=== PATIENT | female | born 1960 | race Caucasian/White ===

== ENCOUNTER 2024-09-10 15:19 | Emergency (ER) | payer MEDICARE, SELFPAY ==
--- NOTE | 2024-09-10 15:25 | XR_ITS ---
WS: [id number] Portable AP upright chest, 09/10/2024 Clinical Data: cough Comparison: None. Findings: No nodules, masses or effusions are seen. The heart is normal. The pulmonary vascularity is not increased. No pneumonia or pneumothorax is seen. The aortic arch and descending thoracic aorta show tortuosity. There is minimal pleural reaction at both costophrenic angles. XR/XR chest 1V portable [id number] Impression: Atherosclerosis.
[2024-09-10 15:48] VITALS: BP 155/79; PULSE 83; RESP 17; TEMP 38.1; O2SAT 94; BMI 32.4
[2024-09-10 17:25] LABS: Covid PCR NEGATIVE (Negative); Influenza A POSITIVE (Negative); Influenza B NEGATIVE (Negative); Respiratory Syncytial Virus Ce NEGATIVE (Negative)
[2024-09-10 18:30] VITALS: PULSE 79; RESP 16; O2SAT 94
--- NOTE | 2024-09-10 18:39 | W.ED.FEVER ---
HPI - Fever General: Chief Complaint: Fever Stated Complaint: congestion/cough Time Seen by Provider: 09/10/24 18:26 Source: patient Mode of arrival: ambulatory Limitations: no limitations History of Present Illness: 64-year-old female who states that over the last 3 days she has been having fever she is also been having some nausea vomiting and headaches. She has had a slight cough as well. No known sick contacts she denies any worsening improving factors. She denies any abdominal pain currently. Associated symptoms: Reports chills, nausea and vomiting; Deny abdominal pain, chest pain, diarrhea, dysuria or headache(s) Related Data Previous Rx's ?Medication ?Instructions ?Recorded ondansetron 4 mg disintegrating 4 mg PO Q6H PRN nausea and 09/10/24 tablet vomiting #14 tabs Allergies Allergy/AdvReac Type Severity Reaction Status Date / Time clopidogrel Allergy ADR-Gastrointestinal Verified 09/10/24 15:52 Upset progesterone Allergy Unknown Verified 09/10/24 15:52 Review of Systems Const: Reports: fever(s), chills and body aches; Denies: change in appetite Eyes: Denies: blurry vision or eye discomfort ENMT: Denies: throat pain or dental pain Card: Denies: chest pain Resp: Denies: dyspnea GI: Reports: nausea and vomiting; Denies: abdominal pain or diarrhea : Denies: dysuria Musc: Denies: neck pain or back pain Skin/Breast: Denies: rash Neuro: Denies: headache(s) Physical Exam Const: COMMON NORMALS: no acute distress, patient oriented x3 and healthy appearing HENMT: COMMON NORMALS: normocephalic and atraumatic HEAD & SCALP: normocephalic and atraumatic Eye: COMMON NORMALS: conjunctivae normal CONJUNCTIVA: Yes conjunctivae normal Neck/C-Spine: COMMON NORMALS: full ROM and supple Chest: COMMONS NORMALS: normal inspection of the chest Resp: COMMON NORMALS: normal respiratory effort, No retractions, No use of accessory muscles and clear to auscultation bilaterally AUSCULTATION: clear to auscultation bilaterally Cardio: COMMON NORMALS: regular rate, regular rhythm and No murmurs present (Cardio) RATE: regular rate RHYTHM: regular rhythm GI: COMMON NORMALS: Normal to inspection, nondistended, normoactive bowel sounds present, Soft to palpation, non-tender and no masses PALPATION: Yes Soft to palpation Extremity: COMMON NORMALS: normal to inspection and full ROM Neuro: COMMON NORMALS: patient oriented x3, moves all extremities and no focal motor deficits Psych: COMMON NORMALS: mental status grossly normal, Normal thought process present and cooperative THOUGHT PROCESS: Normal thought process present Skin: COMMON NORMALS: no rashes or lesions noted and no wounds GENERAL SKIN EXAM: no rashes or lesions noted Course Vital Signs: Vital signs: Vital Signs Temperature 100.5 F H 09/10/24 15:48 Pulse Rate 79 09/10/24 18:30 Respiratory Rate 16 09/10/24 18:30 Blood Pressure 155/79 09/10/24 15:48 Pulse Oximetry 94 09/10/24 18:30 Oxygen Delivery Me thod Room Air 09/10/24 18:30 MDM - Fever Medical Decision Making Patient presents here with influenza she feels improved here blood work is normal she stable for discharge Motrin Tylenol for fever will prescribe her Zofran for nausea. Lab Data I reviewed the patient's lab results. 09/10/24 18:55 09/10/24 18:55 Radiology Impressions Chest X-Ray 09/10/24 15:25 Impression: Atherosclerosis. Laboratory Results WBC 6.63 10^3/uL (3.29-11.43) 09/10/24 18:55 RBC 4.01 10^6/uL (3.85-5.65) 09/10/24 18:55 Hgb 10.00 g/dL (11.27-16.99) L 09/10/24 18:55 Hct 32.5 % (36-47) L 09/10/24 18:55 MCV 81.0 fl (85-98) L 09/10/24 18:55 MCH 24.9 pg (27-33) L 09/10/24 18:55 MCHC 30.8 g/dL (30-55) 09/10/24 18:55 RDW 15.2 % (12.1-15.1) H 09/10/24 18:55 Plt Count 317 10^3/cmm (157-399) 09/10/24 18:55 MPV 9.5 fL (7.4-10.4) 09/10/24 18:55 Neut % (Auto) 80.6 % 09/10/24 18:55 Lymph % (Auto) 7.8 % 09/10/24 18:55 [place] % (Auto) 10.0 % 09/10/24 18:55 Eos % (Auto) 0.6 % 09/10/24 18:55 Baso % (Auto) 0.5 % 09/10/24 18:55 Neut # (Auto) 5.35 10^3/uL (1.8-7.7) 09/10/24 18:55 Lymph # (Auto) 0.5 10^3/uL (0.8-4.8) L 09/10/24 18:55 [place] # (Auto) 0.7 10^3/uL (0.2-0.9) 09/10/24 18:55 Eos # (Auto) 0.0 10^3/uL (0.0-0.8) 09/10/24 18:55 Baso # (Auto) 0.0 10^3/uL (0.0-0.1) 09/10/24 18:55 Nucleated RBC % (auto) 0 % 09/10/24 18:55 Nucleated RBCs # 0.0 /100WBC 09/10/24 18:55 Sodium 137 mmol/L (136-145) 09/10/24 18:55 Potassium 4.1 mmol/L (3.5-5.1) 09/10/24 18:55 Chloride 102 mmol/L (98-107) 09/10/24 18:55 Carbon Dioxide 22 mmol/L (22-29) 09/10/24 18:55 Anion Gap 17.1 (5-19) 09/10/24 18:55 BUN 12 mg/dL (8-23) 09/10/24 18:55 Creatinine 0.8 mg/dL (0.5-0.9) 09/10/24 18:55 Glucose 110 mg/dL (65-115) 09/10/24 18:55 Calcium 8.9 mg/dL (8.5-10.5) 09/10/24 18:55 Total Bilirubin 0.3 mg/dL (0.15-1.2) 09/10/24 18:55 AST 32 U/L (0-32) 09/10/24 18:55 ALT 26 U/L (0-33) 09/10/24 18:55 Alkaline Phosphatase 91 U/L (35-105) 09/10/24 18:55 Total Protein 7.3 g/dL (6.6-8.7) 09/10/24 18:55 Albumin 4.3 g/dL (3.5-5.2) 09/10/24 18:55 Globulin 3.0 g/dL (1.3-4.6) 09/10/24 18:55 Coronavirus (PCR) Negative (Negative) 09/10/24 15:54 Influenza A (PCR) Positive (Negative) 09/10/24 15:54 Influenza Type B (PCR) Negative (Negative) 09/10/24 15:54 RSV (PCR) Negative (Negative) 09/10/24 15:54 All radiology interpretation(s) finalized by discharge Discharge Plan Discharge Patient Disposition: Home Clinical Impression: Influenza Condition: Stable Prescriptions: New ondansetron 4 mg tablet,disintegrating 4 mg PO Q6H PRN (Reason: nausea and vomiting) Qty: 14 0RF Discharge Orders: Discharge ED (Routine); Ordered 09/10/24 Ordered By: Sahi Johnson Discharge Diet: Advance as tolerated Discharge Activity: Resume usual activity Patient Instructions: Influenza (ED) Print Language: Thai Coding Level of Care Code ED 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
[2024-09-10] MEDS: ondansetron 2 mg/ML SDV 2 mL 4 MG IVP (19:20)
[2024-09-10] MEDS: ketorolac 30 mg/mL INJ 15 MG IVP (19:20)
[2024-09-10 19:41] LABS: Basophils % 0.5 %; Eosinophils % 0.6 %; Hematocrit 32.5 % (36-47); Lymphocytes # 0.5 10^3/uL (0.8-4.8); Lymphocytes % 7.8 %; Mean Corpuscular HGB Conc 30.8 g/dL (30-55); Mean Corpuscular Hemoglobin 24.9 pg (27-33); Mean Platelet Volume 9.5 fL (7.4-10.4); Monocytes # 0.7 10^3/uL (0.2-0.9); Neutrophils # 5.35 10^3/uL (1.8-7.7); Neutrophils % 80.6 %; Nucleated Red Blood Cells % 0 %; Platelet Count 317 10^3/cmm (157-399); Red Blood Count 4.01 10^6/uL (3.85-5.65); Red Cell Distribution Width 15.2 % (12.1-15.1); White Blood Count 6.63 10^3/uL (3.29-11.43)
[2024-09-10 19:59] LABS: Alanine Aminotransferase 26 U/L (0-33); Albumin Level 4.3 g/dL (3.5-5.2); Alkaline Phosphatase 91 U/L (35-105); Anion Gap 17.1 (5-19); Aspartate Amino Transferase 32 U/L (0-32); Blood Urea Nitrogen 12 mg/dL (8-23); Calcium 8.9 mg/dL (8.5-10.5); Carbon Dioxide 22 mmol/L (22-29); Chloride 102 mmol/L (98-107); Creatinine Clr Calc Pharmacy 75.9828; Glomerular Filtration Rate 71.8 mL/min (90-130); Glucose 110 mg/dL (65-115); Osmolality Calculated 284 mOsm/kg (285-295); Potassium 4.1 mmol/L (3.5-5.1); Sodium 137 mmol/L (136-145); Total Bilirubin 0.3 mg/dL (0.15-1.2); Total Protein 7.3 g/dL (6.6-8.7)
[2024-09-10 20:13] VITALS: BP 134/78; PULSE 90; O2SAT 90
== END 2024-09-10 20:16 | disposition home or self-care (01) ==
PROVIDERS: Emergency Provider Emergency Medicine
DX: J10.1 Influenza due to other identified influenza virus with other respiratory manifestations (principal); Z11.52 Encounter for screening for COVID-19
CPT/HCPCS: 36415; 71045; 80053; 85025; 87637; 96374; 96375; 99284; J1885; J2405